=== PATIENT | male | born 1955 | race Caucasian/White ===

== ENCOUNTER 2018-09-22 08:50 | Emergency (ER) | payer BC ==
[2018-09-22] MEDS ORDERED: HYDROcodone/Acetaminophen 10/325 mg Tablet ONE (08:58)
[2018-09-22] MEDS ORDERED: Ibuprofen 800 MG TAB ONE (08:59)
--- NOTE | 2018-09-22 19:56 | RAD ---
RIGHT ELBOW FOUR VIEWS: 09/22/18 Limited views were obtained. There is a comminuted displaced fracture of the olecranon that extends i nto the joint. The radial head appears roughly intact, but the views were insufficient to evaluate it completely. IMPRESSION: Comminuted displaced olecranon fracture. POS: HOME
== END 2018-09-22 10:13 | disposition home or self-care (01) ==
LOC: BURERS 08:50
DX: S52.021A Displaced fracture of olecranon process without intraarticular extension of right ulna, initial encounter for closed fracture (principal); E10.9 Type 1 diabetes mellitus without complications; E78.5 Hyperlipidemia, unspecified; I10 Essential (primary) hypertension; Z79.899 Other long term (current) drug therapy; W18.30XA Fall on same level, unspecified, initial encounter
CPT/HCPCS: 29105